=== PATIENT | female | born 1985 | race Caucasian/White ===

== ENCOUNTER 2019-06-19 13:42 | Emergency (ER) | payer OTHER ==
[~2019-06-19] VITALS: Ht 165.1 cm; Wt 55.8 kg
== END 2019-06-19 16:37 | disposition home or self-care (01) ==
LOC: ER 13:42 → EDBD 13:49 → ER 13:49
DX: T20.17XA Burn of first degree of neck, initial encounter (principal); X10.0XXA Contact with hot drinks, initial encounter; Y93.89 Activity, other specified; Y92.89 Other specified places as the place of occurrence of the external cause; Y99.8 Other external cause status